=== PATIENT | male | born 1960 | race Caucasian/White ===

== ENCOUNTER → 2019-04-19 | Outpatient (CLI) | payer OTHER ==
[~2019-04-19] MED LIST: AMLO10TA8 PO; AMPH20TA2 PO; HYDR-3237 PO; TRAM50TA2 PO
[2019-04-19 14:15] LABS: BASOPHILS # (AUTO) 0.05 x10^3/uL (0-0.1); BASOPHILS % (AUTO) 1 % (0-1); EOSINOPHILS # (AUTO) 0.33 x10^3/uL (0-0.4); EOSINOPHILS % (AUTO) 5 % (1-7); LYMPHOCYTES % (AUTO) 29 % (22-44); MD NO; MEAN CORPUSCULAR HEMOGLOBIN 31.1 pg (27.5-34.5); MEAN CORPUSCULAR HGB CONC 33.2 g/dL (33.2-36.2); MEAN CORPUSCULAR VOLUME 93.6 fL (81-97); MEAN PLATELET VOLUME 7.4 fL (7.4-10.4); MONOCYTES # (AUTO) 0.64 x10^3/uL (0.2-0.8); MONOCYTES % (AUTO) 9 % (2-9); NEUTROPHILS # (AUTO) 4.13 x10^3/uL (1.8-6.8); NEUTROPHILS % (AUTO) 57 % (42-75); PLATELET COUNT 286 x10^3/uL (130-400); RED BLOOD COUNT 5.08 x10^6/uL (4.38-5.82); RED CELL DISTRIBUTION WIDTH 14.6 % (9.4-14.8)
[2019-04-19 14:27] LABS: ANION GAP 5 mmol/L (5-15); CALCIUM 8.5 mg/dL (8.5-10.1); CHLORIDE 106 mmol/L (98-107); CREATININE 0.88 mg/dL (0.7-1.3)
[2019-04-19 14:44] LABS: INTERNATIONAL NORMALIZED RATIO 0.89 (0.93-1.1); PROTHROMBIN TIME 9.4 Seconds (9.6-11.5)
[2019-04-19 15:10] LABS: HEMOGLOBIN A1C 6.1 % (4.2-6.3)
== END | disposition home or self-care (01) ==
LOC: STAR 12:46
PROVIDERS: ATTEND Orthopaedic Surgery
DX: Z01.818 Encounter for other preprocedural examination (principal); M16.12 Unilateral primary osteoarthritis, left hip; M24.152 Other articular cartilage disorders, left hip
CPT/HCPCS: 36415; 80048; 83036; 85025; 85610; 85730; 87081; 87147; 93005

== ENCOUNTER 2019-04-26 10:24 | Inpatient (IN) | payer OTHER ==
[~2019-04-26] VITALS: Ht 175.3 cm; Wt 99.1 kg
[~2019-04-26 10:24] MED LIST changes: +EPINEPHRINE 1 MG/ML, 1ML ONE; +KETOROLAC 60 MG/2 ML ONE; +ROPIvacaine/PF 0.5%, 30 ML ONE; +SODIUM CHLORIDE 0.9% 50 ML ONE; +TRANEXAMIC ACID 100 MG/ML, 10ML ONE; +VANCOMYCIN 1,000 MG ONE
[2019-04-26] MEDS ORDERED: LACTATED RINGERS 1,000 ML IV SCH (10:40)
[2019-04-26] MEDS ORDERED: GABAPENTIN 300 MG CAPSULE ONE (10:42)
[2019-04-26] MEDS ORDERED: ACETAMINOPHEN 500 MG TABLET ONE (10:42)
[2019-04-26] MEDS ORDERED: MIDAZOLAM 1 MG/ML, 2ML ONE (10:43)
[2019-04-26] MEDS ORDERED: FENTANYL PF 250 MCG/5ML ONE (10:44)
[2019-04-26 10:57] VITALS: BP 161/110
[2019-04-26] MEDS ORDERED: ACETAMINOPHEN 500 MG TABLET PO ONE (11:00)
[2019-04-26] MEDS ORDERED: GABAPENTIN 300 MG CAPSULE PO ONE (11:00)
[2019-04-26] MEDS ORDERED: FLU VACC QS2019-20 36MOS UP/PF 0.5 ML IM-VACC ONE (11:00)
[2019-04-26] MEDS ORDERED: LIDOCAINE-MPF 1%, 2ML INFIL ONE (11:00)
[2019-04-26] MEDS ORDERED: DIPHENHYDRAMINE 50 MG CAPSULE PO PRN (11:30)
[2019-04-26] MEDS ORDERED: MAGNESIUM HYDROXIDE 8%, 30ML UDC PO PRN (11:30)
[2019-04-26] MEDS ORDERED: ONDANSETRON 2MG/ML, 2ML IV PRN (11:30)
[2019-04-26] MEDS ORDERED: SENNA/DOCUSATE TABLET PO PRN (11:30)
[2019-04-26] MEDS ORDERED: BISACODYL 10 MG SUPP PR PRN (11:30)
[2019-04-26] MEDS ORDERED: ACETAMINOPHEN 650 MG/20.3 ML UDC PO PRN (11:30)
[2019-04-26] MEDS ORDERED: ONDANSETRON 4 MG TABLET PO PRN (11:30)
[2019-04-26] MEDS ORDERED: ZOLPIDEM 5MG TABLET PO PRN (11:30)
[2019-04-26] MEDS ORDERED: OXYcodone IR 5MG TABLET PO PRN (11:30)
[2019-04-26] MEDS ORDERED: hydrALAzine 20 MG/ML, 1ML ONE (11:41)
[2019-04-26] MEDS ORDERED: ROCURONIUM 10 MG/ML,10ML ONE (11:41)
[2019-04-26] MEDS ORDERED: METOPROLOL 1 MG/ML, 5ML ONE (11:58)
[2019-04-26] MEDS ORDERED: DEXAMETHASONE 4 MG/ML, 1ML ONE (12:03)
[2019-04-26] MEDS ORDERED: ONDANSETRON 2MG/ML, 2ML ONE (12:03)
[2019-04-26] MEDS ORDERED: CEFAZOLIN 1,000 MG ONE (12:03)
[2019-04-26] MEDS ORDERED: GLYCOPYRROLATE 0.2MG/1ML, 5ML ONE (12:03)
[2019-04-26] MEDS ORDERED: PROPOFOL 10 MG/ML, 20ML ONE (12:03)
[2019-04-26] MEDS ORDERED: NEOSTIGMINE 1 MG/ML, 10ML ONE (12:03)
[2019-04-26] MEDS ORDERED: FENTANYL PF 100 MCG/2ML ONE ×2 (12:13→12:48)
[2019-04-26] MEDS ORDERED: METOPROLOL 1 MG/ML, 5ML IV PRN (12:30)
[2019-04-26] MEDS ORDERED: PROMETHAZINE 25 MG/ML, 1ML IV PRN (12:30)
[2019-04-26] MEDS ORDERED: MEPERIDINE/PF 25MG/ML,1ML IVPush PRN (12:30)
[2019-04-26] MEDS ORDERED: DIAZEPAM 5 MG/ML, 2ML IVPush PRN (12:30)
[2019-04-26] MEDS ORDERED: ALBUTEROL/IPRATROPIUM 2.5MG/0.5MG, 3 ML NPPB PRN (12:30)
[2019-04-26] MEDS ORDERED: HYDROmorphone 2 MG/ML, 1ML IVPush PRN (12:30)
[2019-04-26] MEDS ORDERED: hydrALAzine 20 MG/ML, 1ML IV PRN (12:30)
[2019-04-26] MEDS ORDERED: MIDAZOLAM 1 MG/ML, 2ML IV PRN (12:30)
[2019-04-26] MEDS ORDERED: OXYcodone 5 MG/5 ML ORAL.SOL UDC PO PRN (12:30)
[2019-04-26] MEDS ORDERED: OXYcodone 5 MG/5 ML ORAL.SOL UDC ONE (12:48)
[2019-04-26] MEDS ORDERED: HYDROmorphone 2 MG/ML, 1ML ONE (12:48)
[2019-04-26] MEDS: FENTANYL PF 100 MCG/2ML IV PRN ×2 (12:51→12:58)
[2019-04-26] MEDS ORDERED: SCOPOLAMINE PATCH, 1.5MG PATCH.TD72 TD ONE (14:24)
[2019-04-26] MEDS: NS + 20MEQ KCL 1,000 ML IV SCH (15:06)
[2019-04-26] MEDS: HYDROcodone/APAP 5/325 TABLET PO PRN ×2 (16:17→22:37)
[2019-04-26] MEDS: ASPIRIN 81 MG TABLET EC PO SCH (18:33)
[2019-04-26 20:06] VITALS: BP 138/88
[2019-04-26] MEDS: CEFAZOLIN PMX 2GM/50ML 50 ML IVPB SCH (20:37)
[2019-04-26] MEDS: DOCUSATE 100 MG CAPSULE PO SCH (20:37)
[2019-04-27 01:33] VITALS: BP 129/74
[2019-04-27] MEDS: HYDROcodone/APAP 5/325 TABLET PO PRN ×3 (02:55→12:50)
[2019-04-27 03:55] VITALS: BP 151/80
[2019-04-27] MEDS: CEFAZOLIN PMX 2GM/50ML 50 ML IVPB SCH (04:42)
[2019-04-27] MEDS: ASPIRIN 81 MG TABLET EC PO SCH (05:48)
[2019-04-27] MEDS ORDERED: DEXAMETHASONE 4 MG/ML, 1ML IVPush SCH (06:00)
[2019-04-27 08:00] VITALS: BP 145/75
[2019-04-27] MEDS: NS + 20MEQ KCL 1,000 ML IV SCH (08:07)
[2019-04-27] MEDS: DOCUSATE 100 MG CAPSULE PO SCH (08:08)
[2019-04-27] MEDS ORDERED: MELO7.5T31 PO (08:48)
[2019-04-27] MEDS ORDERED: TRAM50TA2 PO (08:49)
[2019-04-27] MEDS ORDERED: OXYC5TAB3 PO (08:50)
[2019-04-27] MEDS ORDERED: AMLODIPINE 10 MG TAB PO SCH (09:00)
[2019-04-27] MEDS ORDERED: FLU VACC QS2019-20 36MOS UP/PF 0.5 ML IM ONE (09:00)
== END 2019-04-27 12:54 | disposition home or self-care (01) | DRG 470 ==
LOC: ORIP 10:24 → 4NE 14:17 → DCLOUNGE 04-27 12:27
PROVIDERS: ADMIT Orthopaedic Surgery; ATTEND Orthopaedic Surgery
PROC: 0SRB06A Replacement of Left Hip Joint with Oxidized Zirconium on Polyethylene Synthetic Substitute, Uncemented, Open Approach (ICD-10-PCS; principal; 2019-04-26 12:15)
DX: M16.12 Unilateral primary osteoarthritis, left hip (principal); I10 Essential (primary) hypertension; E66.9 Obesity, unspecified; G89.29 Other chronic pain; Z68.32 Body mass index [BMI] 32.0-32.9, adult
CPT/HCPCS: 36415; 76000; 85014; 85018; 90686; C1713; G0378; J0171; J0690; J1100; J1170; J1885; J2250; J2405; J2704; J2710; J2795; J3010; J3370; J3480; C1776; J0360; J7120